=== PATIENT | female | born 1985 ===

== ENCOUNTER 2022-04-19 05:35 | Day surgery (SDC) | payer OTHER ==
[2022-04-19] VITALS (7 sets, daily range): BP systolic 124–135; BP diastolic 65–81; PULSE 62–88; TEMP 97.9–99.2
[~2022-04-19] VITALS: Ht 162.6 cm; Wt 100.3 kg
[2022-04-19] MEDS ORDERED: PRILOSEC 20MG20 MG PO (06:13)
[2022-04-19] MEDS ORDERED: NORCO 325 MG-51 TAB PO ×2 (06:14→08:10)
[2022-04-19] MEDS ORDERED: KYLEENA1 EACH IY (06:15)
[2022-04-19] MEDS ORDERED: MULTI VITAMINS1 TAB PO (06:16)
[2022-04-19] MEDS ORDERED: CALCIUM-MAGNES1 EAC1 PO (06:17)
[2022-04-19] MEDS ORDERED: CYMBALTA 60MG60 MG PO (06:18)
--- NOTE | 2022-04-19 09:05 | NUR ---
PT TO BAY 1 PER CART FROM PACU. RECEIVED REPORT. PT TOLERATING WATER AND CRACKERS. CALL LIGHT WITHIN REACH. PT DENIES ANY NEEDS AT THIS TIME.
--- NOTE | 2022-04-19 09:30 | NUR ---
PT TOLERATING WATER, JUICE, AND PUDDING WITHOUT DIFFICULTY. ICE PACK GIVEN FOR SOME DISCOMFORT TO HER ABDOMEN.
--- NOTE | 2022-04-19 10:25 | NUR ---
1000 PT RATES PAIN AT 5-6/10. HYDROCODONE 5/325 GIVEN AT THIS TIME. 1010-IV DC'D AT THIS TIME. 1015-DISCHARGE EDUCATION COMPLETED WITH PT. VERBALIZED UNDERSTANDING OF HOME AND FOLLOW UP CARE. ALL QUESTIONS ANSWERED. DISCHARGE PAPEWORK GIVEN TO PT. 1025-PT OFF UNIT PER WHEELCHAIR. PT DISCHARGED TO HOME WITH PER PERSONAL VEHICLE.
== END 2022-04-19 10:25 | disposition home or self-care (01) ==
LOC: SDCO 05:35
DX: K80.10 Calculus of gallbladder with chronic cholecystitis without obstruction (principal); K66.0 Peritoneal adhesions (postprocedural) (postinfection); K21.9 Gastro-esophageal reflux disease without esophagitis; Z86.16 Personal history of COVID-19; Z79.899 Other long term (current) drug therapy
CPT/HCPCS: J0690; J1100; J1170; J1885; J2270; J2405; J2704; J2710; J7120